=== PATIENT | male | born 1970 | race Caucasian/White ===

== ENCOUNTER 2016-09-18 21:22 | Emergency (ER) | payer OTHER ==
[~2016-09-18 21:22] MED LIST: Z.0.NO CURRENT MEDS
[2016-09-18 21:31] VITALS: BP 167/100; PULSE 86; RESP 20; TEMP 98.3
[2016-09-18] MEDS ORDERED: TOBR.3%O LEFT EYE (22:15)
--- NOTE | 2016-09-18 22:16 | PD ---
HPI Chief Complaint: Eye Problems/Injury Time Seen by Provider: 22:09 Travel History International Travel<30 days: No Contact w/Intl Traveler<30days: No Traveled to known affect area: No History of Present Illness HPI The patient is a 46-year-old female that complains of left eye pain and burning , sharp pain like a knife cutting him an 8/10. At 3 PM he was sawing a piece of wood which fluid in his left eye. He was not wearing glasses or any other eye protection. He does not wear contacts. [facility] Past Medical History Medical History: Denies Significant Hx Tetanus Vaccination: > 5 Years Influenza Vaccination: No Past Surgical History Surgical History: No Previous Surgery Social History Alcohol Use: Yes (Occ.) Tobacco Use: No Substance Use: No Allergies-Medications (Allergen,Severity, Reaction): Coded Allergies: No Known Allergies (Verified , 09/18/16) Reported Meds & Prescriptions Reported Meds & Active Scripts Active Tobrex Opth Oint (Tobramycin Sulfate) 0.3 % Oint 1 Applic LEFT EYE QID Review of Systems Except as stated in HPI: all other systems reviewed are Neg Physical Exam Narrative GENERAL: Well-nourished, well-developed patient in moderate apparent distress with his left thigh pain. SKIN: Focused skin assessment warm/dry. HEAD: Normocephalic. EYES: No scleral icterus. No injection or drainage. The visual acuity is 20/25 in the left eye and 20 over 20 in the right eye. There is conjunctival injection in the left eye. No foreign body is seen, lids and tarsal plate were retracted and no foreign body noted. Fluorescein staining was done and corneal uptake was present at 1:00. The corneal abrasion was very superficial. NECK: Supple, trachea midline. No JVD or lymphadenopathy. CARDIOVASCULAR: Regular rate and rhythm without murmurs, gallops, or rubs. RESPIRATORY: Breath sounds equal bilaterally. No accessory muscle use. GASTROINTESTINAL: Abdomen soft, non-tender, nondistended. MUSCULOSKELETAL: No cyanosis, or edema. BACK: Nontender without obvious deformity. No CVA tenderness. Data Data Last Documented VS Vital Signs Date Time Temp Pulse Resp B/P Pulse Ox O2 Delivery O2 Flow Rate FiO2 09/18/16 21:31 98.3 86 20 167/100 MDM Medical Decision Making Medical Screen Exam Complete: Yes Emergency Medical Condition: Yes Medical Record Reviewed: Yes Differential Diagnosis Foreign body left eye, corneal abrasion, corneal lacerationunlikely Narrative Course The patient has a corneal abrasion in the left eye. He is very symptomatic with this and will be given Tobrex ointment as well as proparacaine eyedrops. He is warned about the affect of proparacaine eyedrops and he should not ever touches eyes or rub his eyes if he uses the proparacaine eyedrops. He is told about how they take out his protective eye reflexes. Diagnosis Primary Impression: Injury of conjunctiva and corneal abrasion without foreign body, left eye, initial encounter Additional Instructions: As we discussed, put a crate of sand amount and the left eyelid 4 times daily. Were glasses so that you do not touch your eye if you use proparacaine. Med/Other Pt SpecificInfo: Prescription(s) given Scripts Tobramycin Opth Oint (Tobrex Opth Oint)0.3 % Oint1 Applic LEFT EYE QID #1 TUBE Ref 0 Prov:Jan Ty MD 09/18/16 Disposition: 01 DISCHARGE HOME Condition: Stable Jan Ty MD Sep 18, 2016 22:16
[2016-09-18] MEDS ORDERED: TOBRAMYCIN SULFATE 0.3% OPTH OINT 3.5 GM TUBE LEFT EYE ONE (22:30)
== END 2016-09-18 22:30 | disposition home or self-care (01) ==
LOC: PHEFT 21:22
DX: S05.02XA Injury of conjunctiva and corneal abrasion without foreign body, left eye, initial encounter (principal); W20.8XXA Other cause of strike by thrown, projected or falling object, initial encounter; Y93.H3 Activity, building and construction
CPT/HCPCS: 99283